=== PATIENT | female | born 2000 | race Caucasian/White ===

== ENCOUNTER 2019-03-27 16:40 | Emergency (ER) | payer SELFPAY ==
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
[2019-03-27 17:35] LABS: ABSOLUTE EOSINOPHILS # (AUTO) 0.1 10^3/uL (0.0-0.6); ABSOLUTE MONOCYTES (AUTO) 0.4 10^3/uL (0.1-1.4); ABSOLUTE NEUT (AUTO) 4.6 10^3/uL (1.7-8.2); BASOPHILS % (AUTO) 0.4 % (0-2); EOSINOPHILS % (AUTO) 1.8 % (0-6); HEMATOCRIT 37.6 % (36.0-47.0); HEMOGLOBIN 12.4 g/dL (12.0-15.5); LYMPHOCYTES % (AUTO) 28.3 % (13-45); MEAN CORPUSCULAR HEMOGLOBIN 29.2 pg (27.0-33.4); MEAN CORPUSCULAR VOLUME 88 fl (80-97); PLATELET COUNT 337 10^3/uL (150-450); RED BLOOD COUNT 4.26 10^6/uL (3.72-5.28); RED CELL DISTRIBUTION WIDTH 13.8 % (11.5-14.0); SEGMENTED NEUTROPHILS % (AUTO) 64.5 % (42-78); TOTAL CELLS COUNTED % (AUTO) 100 %; WHITE BLOOD COUNT 7.1 10^3/uL (4.0-10.5)
[2019-03-27 17:56] LABS: ALANINE AMINOTRANSFERASE 40 U/L (9-52); ALBUMIN 4.3 g/dL (3.5-5.0); ALKALINE PHOSPHATASE 62 U/L (38-126); ANION GAP 11 (5-19); ASPARTATE AMINO TRANSFERASE 31 U/L (14-36); BILIRUBIN,DIRECT 0.2 mg/dL (0.0-0.4); BILIRUBIN,TOTAL 0.7 mg/dL (0.2-1.3); BLOOD UREA NITROGEN 8 mg/dL (7-20); CALCIUM 9.7 mg/dL (8.4-10.2); CARBON DIOXIDE 28 mmol/L (22-30); CHLORIDE 102 mmol/L (98-107); GLUCOSE 100 mg/dL (75-110); POTASSIUM 4.1 mmol/L (3.6-5.0); SODIUM 140.5 mmol/L (137-145); TOTAL PROTEIN 7.9 g/dL (6.3-8.2)
[2019-03-27 18:00] LABS: ACETAMINOPHEN < 10 ug/mL (10-30); ALCOHOL < 10 mg/dL (NONE DETECTED); SALICYLATE < 1.0 mg/dL (2.0-20.0)
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
[2019-03-27 21:13] LABS: URINE AMPHETAMINES SCREEN NEGATIVE; URINE BARBITURATES SCREEN NEGATIVE; URINE BENZODIAZEPINES SCREEN NEGATIVE; URINE COCAINE SCREEN UNCONFIRMED POSITIVE; URINE MARIJUANA (THC) SCREEN UNCONFIRMED POSITIVE; URINE METHADONE SCREEN NEGATIVE; URINE PHENCYCLIDINE SCREEN NEGATIVE
[2019-03-27 21:17] LABS: APPEARANCE,URINE SLIGHTLY-CLOUDY; BILIRUBIN,URINE NEGATIVE (NEGATIVE); COLOR,URINE YELLOW; GLUCOSE, URINE NEGATIVE (NEGATIVE); KETONES,URINE NEGATIVE (NEGATIVE); LEUKOCYTE ESTERASE,URINE SMALL (NEGATIVE); NITRITE,URINE NEGATIVE (NEGATIVE); PROTEIN,URINE NEGATIVE (NEGATIVE); URINE SPECIFIC GRAVITY 1.014; UROBILINOGEN,URINE NEGATIVE mg/dL (<2.0)
--- NOTE | 2019-03-27 22:19 | EKG REPORT ---
SEVERITY:- NORMAL ECG - SINUS RHYTHM : Confirmed by: Karina Gaona MD 27-Mar-2019 22:18:32
--- NOTE | 2019-03-28 11:02 | ER Document Report ---
Doctor's Note Notes: 03/28/19 11:01 Patient seen and examined. Her only complaint today is that she is "going into withdrawals." She last used yesterday. She is a 5-year history of heroin abuse, injecting. She is anxious to be discharged to go to rehab. She denies any current suicidal ideation. Physical exam performed. She was resting c omfortably when I walked up to the patient. Intermittently she would exhibit these tremors, seem more intentional. Is normocephalic and atraumatic heart is regular rate and rhythm, lungs are clear station bilaterally. Mood and affect are congruent, good eye contact. Plan will be to discharge this patient so that she can be brought to the rehab facility. She is not actively suicidal. I did not see any overt signs of withdrawal at this time, feel comfortable with delay of any withdrawal treatment until she is at the rehab facility tonight.
--- NOTE | 2019-03-28 11:37 | PSYCHOLOGICAL NOTE ---
Psych Note - Psych Note Date seen by psych provider: 03/28/19 Time seen by psych provider: 07:81 - [id number] Psych Note: Reason for Consult: Detox Patient is a 19-year-old female with history of bipolar disorder and substance abuse that presents to the emergency department for chief complaint of suicidal ideation and hallucinations. Patient is alert and orientated to person, place, time and circumstance. Mood is euthymic with congruent affect. Patient endorses passive suicidal ideation i.e. no plans means or intent denies homicidal ideation. Delusions are absent behaviors congruent with an intact reality based presentation i.e. organized linear thought process. Patient reports history of auditory hallucinations. Patient is currently not demonstrating any behaviors of responding to internal stimuli. Eye contact is well-maintained. Conversational speech is within normal rate, tone and prosody. Intellectual abilities appear to be within the average range. Attention concentration are good. Insight, judgment, impulse control are fair. No medication recommendations at this time Unspecified opiate use disorder Bipolar 1 disorder per history provided by patient Impression\plan: Patient is cleared from acute psychiatric services. Patient does not meet IVC criteria per [place] GS 122C. Patient reports she is currently going through heroin withdrawal. She identifies her hallucinations being worse this last month after she relapsed and has been using heroin. Patient did receive a bed offer through the [facility] at 7 PM. Patient is encouraged to follow through with this voluntary placement. She identifies that her parents will transport her to [facility]. Dr. Smith was consulted and the care management of this patient; attending physicians in agreement with recommendations and disposition.
[2019-03-28 14:17] VITALS: BP 109/67
== END 2019-03-28 14:17 | disposition home or self-care (01) ==
LOC: ER 16:40
DX: F11.10 Opioid abuse, uncomplicated (principal); F12.10 Cannabis abuse, uncomplicated; R45.851 Suicidal ideations; R44.0 Auditory hallucinations; F17.210 Nicotine dependence, cigarettes, uncomplicated
CPT/HCPCS: 36415; 80053; 80178; 80307; 81001; 84703; 85025; 93005; 93010; 99285